=== PATIENT | female | born 1930 | race Caucasian/White ===

== ENCOUNTER 2017-07-20 15:00 | Outpatient (RCR) | payer OTHER ==
[~2017-07-20 15:00] MED LIST: ASPIRIN81 MG ORAL; SIMVASTATIN20 MG ORAL; VITAMIN D1000 UNI1 ORAL
== END 2017-07-23 | disposition home or self-care (01) ==
LOC: PTY 15:00
DX: M41.9 Scoliosis, unspecified (principal); M54.41 Lumbago with sciatica, right side; E78.00 Pure hypercholesterolemia, unspecified; M19.91 Primary osteoarthritis, unspecified site
CPT/HCPCS: 97035; 97110; 97140; 97162; G0283